=== PATIENT | male | born 1965 | race Caucasian/White ===

== ENCOUNTER 2024-12-16 09:41 | Outpatient (OUT) | payer BC, SELFPAY ==
--- OUTSIDE RECORDS SUMMARY | 2024-12-16 09:49 | XMS_ITS | Clinical Summary ---
Author Organization [facility] Address [address], [address] [place] [address] Care Team Providers Care Doughnut Icer Name Role Phone Tucker Arana Primary Care Provider [phone] Allergies Active Allergy Reactions Criticality Noted Date Comments Dulaglutide Nausea And Vomiting Low 08/08/2020 Medications aspirin 81 MG tablet Take 1 tablet by mouth daily Active losartan (COZAAR) 25 MG tablet Take 1 tablet by mouth daily Active hydrochlorothi azide (HYDRODIURIL) 25 MG tabletIndicati ons:Takes MWF Take 25 mg by mouth daily Active metFORMIN (GLUCOPHAGE) 1000 MG tablet Take 1,000 mg by mouth 2 times daily (with meals) Active insulin glargine (TOUJEO MAX SOLOSTAR) 300 UNIT/ML injection pen Inject 30 Units into the skin nightly Active empagliflozin (JARDIANCE) 25 MG tablet Take 1 tablet by mouth daily Active sitaGLIPtan-me tFORMIN (JANUMET) 50-1000 MG per tablet 1 tablet 4 Active atorvastatin (LIPITOR) 40 MG tablet Take 1 tablet by mouth daily Active BASAGLAR KWIKPEN 100 UNIT/ML injection pen inject 30 units subcutaneously every evening 4 Active metoprolol tartrate (LOPRESSOR) 50 MG tablet Take 1 tablet by mouth 2 times daily 180 tablet 2 5 Active nitroGLYCERIN (NITROSTAT) 0.[address] 1 tablet under the tongue as needed for Chest pain up to max of 3 total doses. If no relief after 1 dose, call 911. 25 tablet 5 Active nitroGLYCERIN (NITRODUR) 0.2 MG/HR APPLY 1 PATCH ONCE DAILY DIRECTED 90 patch 1 5 Active Active Problems Problem Noted Date Diagnosed Date Benign essential HTN 11/11/2023 Social History Tobacco Use Types Packs/Day Years Used Date Smoking Tobacco: Former Smokeless Tobacco: Never Tobacco Cessation:Counseling Given: Not Answered Alcohol Use Standard Drinks/Week Comments No 0 (1 standard drink = 0.6 oz pur e alcohol) Sex and Gender Information Value Date Recorded Sex Assigned at Not on file Legal Sex Male 9:45 PM EST Gender Identity Not on file Sexual Orientation Not on file Last Filed Vital Signs Vital Sign Reading Time Taken Comments Blood Pressure 138/88 11/11/2023 9:35 AM EDT Pulse 74 11/11/2023 9:35 AM EDT Temperature 36.3 C (97.3 F) 05/13/2018 1:00 AM EST Respiratory Rate 16 11/11/2023 9:35 AM EDT Oxygen Saturation 97% 11/11/2023 9:35 AM EDT Inhaled Oxygen Concentration - - Weight 100.7 kg (222 lb) 11/11/2023 9:35 AM EDT Height 170.2 cm (5' 7 ) 11/11/2023 9:35 AM EDT Body Mass Index 34.77 11/11/2023 9:35 AM EDT Plan of Treatment Health Maintenance Due Date Last Done Comments Depression Screen 1976 HIV screen 08/12/1979 Hepatitis C screen 1982 Colonoscopy 2009 Colorectal Cancer Screen 2009 FIT/FOBT: Average risk 2009 Fecal-DNA (Cologuard): Average risk 2009 Sigmoidoscopy/CT colonography 2009 Shingles vaccine (1 of 2) 2014 Pneumococcal 50+ years Vaccine (2 of 2 - PCV) 10/30/2019 10/29/2018, 08/20/2011 COVID-19 Vaccine (3 - season) 2024 02/23/2021, 01/26/2021 Respiratory Syncytial Virus (RSV) or age 60 yrs+ (1 - Risk 60-74 years 1-dose series) 2024 Lipids 10/29/2024 10/30/2023, 06/2022, 11/02/2021, Additional history exists Flu vaccine (#1) 12/10/2024 03/26/2023, , 01/11/2020, Additional history exists A1C test (Diabetic or Prediabetic) 01/20/2025 01/21/2024, 10/03/2023, 03/19/2023, Additional history exists DTaP/Tdap/Td vaccine (4 - Tdap) 04/25/2027 04/25/2017, 01/17/2016, 02/06/2015, Additional history exists Pneumococcal 0-49 years Vaccine Discontinued 10/29/2018, 08/20/2011 Diabetic Alb to Cr ratio (uACR) test Discontinued 10/30/2023, 10/11/2022, 11/02/2021, Additional history exists Prostate Specific Antigen (PSA) Screening or Monitoring Discontinued 01/21/2024, 10/30/2023, 10/11/2022, Additional history exists Hepatitis A vaccine Aged Out No longe r eligible based on patient's age to complete this topic Hepatitis B vaccine Aged Out No longe r eligible based on patient's age to complete this topic Hib vaccine Aged Out No longer eligi ble based on patient's age to complete this topic Meningococcal (ACWY) vaccine Aged Out No longer eligible based on patient's age to complete this topic Meningococcal B vaccine Aged Out No l onger eligible based on patient's age to complete this topic Polio vaccine Aged Out No longer elig ible based on patient's age to complete this topic Procedures Procedure Name Priority Date/Time Associated Diagnosis Comments HEMOGLOBIN A1C Routine 01/21/2024 9:57 AM EDT PSA, FREE Routine 01/21/2024 9:56 AM EDT LIPID PANEL Routine 10/30/2023 11:51 AM EDT MICROALBUMIN, UR Routine 10/30/2023 11:5 1 AM EDT from Last 3 Months or Most Recently Relevant to Health Maintenance Results * (ABNORMAL) Hemoglobin A1C (01/21/2024 9:57 AM EDT) Hemoglobin A1C 6.8(H) 4.0 - 6.0 % 01/21/2024 9:57 AM EDT [facility] Estimated Avg Glucose 148 mg/dL 01/21/2024 9:57 AM EDT [facility] Comment: The ADA and AACC recommend providing the estimated average glucose result to permit better patient understanding of their HBA1c result. 01/21/2024 9:57 AM EDT 01/21/2024 9:58 AM EDT us Tucker Arana DO CHEMISTRY ORDERABLES Final Resu lt [facility] [address] [place] [address], [facility] [[email or web address]] [phone] [place] [id number] [address] [phone] * PSA, free (01/21/2024 9:56 AM EDT) PSA 1.40 0.00 - 4.00 ng/mL 01/21/2024 9:56 AM EDT [facility] Comment: The Cr ECLIA assay is used. Results obtained with different assay methods cannot be used interchangeably. PSA, Free 0.4 ug/L 01/21/2024 9:56 AM EDT [facility] PSA, Free Pct 28.6 % 01/21/2024 9:56 AM EDT [facility] Comment: In patients with total PSA concentrations of 4-10 ng/mL, the probability of finding prostate cancer on needle biopsy in a patient age 50-59 years is: % Free PSA Probability 0-10% 49% 11-18% 27% 19-25% 18% >25 % 9% Other factors may help determine the actual risk of prostate cancer in individual patients. The free PSA percentage is an aid in distinguishing prostate cancer from benign prostatic conditions in men age 50 and older with a total PSA between 3 and 10 ng/mL and negative digital rectal examination findings. 01/21/2024 9:56 AM EDT 01/21/2024 9:57 AM EDT us Tucker Arana DO CHEMISTRY ORDERABLES Final Resu lt [facility] [address] [place] [address], [facility] [[email or web address]] [phone] [facility] [address] [place] [address], [facility] [[email or web address]] [phone] * Microalbumin, Ur (10/30/2023 11:51 AM EDT) Albumin Urine <12 0 - 20 mg/L 10/30/2023 11:51 AM EDT [facility] Creatinine, Ur 67.0 39.0 - 259.0 mg/dL 10/30/2023 11:51 AM EDT [facility] Microalb/Oral And Maxillofacial Surgeon. Ratio Can not be calculated 0.0 - 17.0 mcg/mg creat 10/30/2023 11:51 AM EDT [facility] 10/30/2023 11:5 1 AM EDT 10/30/2023 11:52 AM EDT us Tucker Arana DO URINE ORDERABLES Final Result [facility] [address] [place] [id number], [facility] [[email or web address]] [phone] [email or web address] [address], [facility] [[email or web address]] [phone] * (ABNORMAL) Lipid Panel (10/30/2023 11:51 AM EDT) Cholesterol, Total 119 0 - 199 mg/dL 10/30/2023 11:51 AM EDT [facility] Comment: Cholesterol Guidelines: <200 Desirable 200-240 Borderline >240 Undesirable HDL 36(L) >40 mg/dL 10/30/2023 11:51 AM EDT [facility] Comment: HDL Guidelines: <40 Undesirable 40-59 Borderline >59 Desirable LDL Cholesterol 64 0 - 100 mg/dL 10/30/2023 11:51 AM EDT [facility] Comment: LDL Guidelines: <100 Desirable 100-129 Near to/above Desirable 130-159 Borderline >159 Undesirable Direct (measured) LDL and calculated LDL are not interchangeable tests. Chol/HDL Ratio 3.0 10/30/2023 11:51 AM EDT [facility] Triglycerides 99 <150 mg/dL 10/30/2023 11:51 AM EDT [facility] Comment: Triglyceride Guidelines: <150 Desirable 150-199 Borderline 200-499 High >499 Very high Based on AHA Guidelines for fasting triglyceride, February 2012. VLDL 20 mg/dL 10/30/2023 11:51 AM EDT [facility] 10/30/2023 11:5 1 AM EDT 10/30/2023 11:52 AM EDT Tucker Arana DO CHEMISTRY ORDERABLES Final Resu lt [facility] [address] [place] [address], [facility] [[email or web address]] [phone] [place] [id number] [place] [id number] [phone] from Last 3 Months or Most Recently Relevant to Health Maintenance [place] [employer] Care Teams Doughnut Icer Relationship Specialty Start Date End Date Tucker Arana DO [address] [place] [address] PCP - General 01/30/12
--- OUTSIDE RECORDS SUMMARY | 2024-12-16 09:49 | XMS_ITS | Encounter Summary ---
Author Organization [facility] Address [address], [address] [place] [address] Care Team Providers Care Cloth Hand Name Role Phone Tucker Arana DO Primary Care Provider [phone] Reason for Referral * Imaging (Routine) - Closed Specialty Diagnoses / Procedures Referred By Contac t Referred To Contact Radiology Diagnoses Atherosclerosis of coronary artery, angina presence unspecified, unspecified vessel or lesion type, unspecified whether [place] or transplanted heart Hypertension, essential Procedures NM CARDIAC MUGA SCAN Molly Amaya MD [facility] Nuclear Medicine [address] [place], [place] [id number] Phone: tel: Referral ID Status Reason Start Date Expiration Date Visits Re quested Visits Authorized [id number] Closed 09/06/2020 10/05/2020 1 1 Encounter Details Date Type Department Care Team (Latest Contact Info) Description 09/07/2020 Transcribe Orders [facility] [address] [place] [address] oMlly Amaya MD Atherosclerosis of coronary artery, angina presence unspecified, unspecified vessel or lesion type, unspecified whether [place] or transplanted heart (Primary Dx); Hypertension, essential Social History Tobacco Use Types Packs/Day Years Used Date Smoking Tobacco: Former Smokeless Tobacco: Never Alcohol Use Standard Drinks/Week Comments No 0 (1 standard drink = 0.6 oz pur e alcohol) Sex and Gender Information Value Date Recorded Sex Assigned at Not on file Legal Sex Male 9:45 PM EST Gender Identity Not on file Sexual Orientation Not on file documented as of this encounter Plan of Treatment Not on file documented as of this encounter Results * NM CARDIAC MUGA SCAN (09/15/2020 11:51 AM EDT) Left Ventricular Ejection Fraction 56 MH LVEF LVEF MODALITY Nuclear LVEF Anatomical Region Laterality Modality Chest Nuclear Medicine 09/15/2020 11:4 7 AM EDT Impressions 09/15/2020 3:01 PM EDT Left ventricular ejection fraction is 56% Narrative 09/15/2020 3:01 PM EDT EXAMINATION: MUGA SCAN 09/15/2020 TECHNIQUE: The patient's erythrocytes were labeled with 25.5 mCi of 99 mTc. Following injection, scintigraphy with ECG gating was acquired. COMPARISON: None. HISTORY: ORDERING SYSTEM PROVIDED HISTORY: Atherosclerosis of coronary artery, angina presence unspecified, unspecified vessel or lesion type, unspecified whether [place] or transplanted heart FINDINGS: The cardiac chambers and great vessels appear grossly normal in size and configuration. Right ventricular contractility is subjectively normal. Left ventricle ejection fraction is 56%. Procedure Note Stefanie Contreras MD / Result, Unknown Provider - 09/15/2020 EXAMINATION: MUGA SCAN 09/15/2020 TECHNIQUE: The patient's erythrocytes were labeled with 25.5 mCi of 99 mTc.Following injection, scintigraphy with ECG gating was acquired. COMPARISON: None. HISTORY: ORDERING SYSTEM PROVIDED HISTORY: Atherosclerosis of coronary artery,angina presence unspecified, unspecified vessel or lesion type, unspecifiedwhether [place] or transplanted heart FINDINGS: The cardiac chambers and great vessels appear grossly normal in size and configuration. Right ventricular contractility is subjectively normal. Left ventricle ejection fraction is 56%. IMPRESSION: Left ventricular ejection fraction is 56% Molly Amaya MD [facility] ORDERABLES Edited Result - Final documented in this encounter Visit Diagnoses Diagnosis Atherosclerosis of coronary artery, angina presence unspecified, unspecified vessel or lesion type, unspecified whether [place] or transplanted heart- Primary Hypertension, essential Unspecified essential hypertension Atherosclerosis of coronary artery, angina presence unspecified, unspecified vessel or lesion type, unspecified whether [place] or transplanted heart Hypertension, essential Unspecified essential hypertension documented in this encounter Care Teams Cloth Hand Relationship Specialty Start Date End Date Tucker Arana DO [address] [place] [id number] PCP - General 01/30/12 documented as of this encounter
--- NOTE | 2024-12-16 09:55 | XR_ITS ---
The [address] [address] Patient Name: CHAPITO TRENT MRN: [id number] date: 1965 Sex: M Assigned Patient Location: [facility] Current Patient Location: [facility] Accession/Order Number: [id number] Exam Date: 12/16/2024 10:42 Report Date: 12/16/2024 10:57 At the request of: NNAMDI FAJARDO DO Procedure: XR ribs LT min 3V w CXR1V PA CHEST WITH LEFT RIBS: CLINICAL HISTORY: Patient fell onto left side approximately one week ago. Increasing left rib pain after coughing 4 days ago. COMPARISON: None The chest film shows no infiltrate, effusion or pneumothorax. The heart is normal size. There is increased right paratracheal soft tissue density. It is uncertain if this is vascular on the basis of this study and there are no priors for correlation. No vascular congestion is seen. AP and both oblique views of the left ribs show no definite acute displaced fractures or bony destruction. XR/XR ribs LT min 3V w CXR1V IMPRESSION: NO ACUTE RIB OR PULMONARY FINDINGS. APPARENT MEDIASTINAL WIDENING. THIS MIGHT BE VASCULAR THOUGH THERE ARE NO PRIORS FOR CORRELATION. IF OUTSIDE STUDIES EXIST, COMPARISON MAY BE HELPFUL. OTHERWISE FOLLOW-UP COULD BE OBTAINED CLINICALLY WARRANTED. Impression dictated by: Neelima Land M.D. 12/16/2024 10:57 AM Dictation Location: [place] [address] Electronically authenticated by: [id number] Y Date: 12/16/2024 10:57
== END 2024-12-16 09:42 | disposition home or self-care (01) ==
LOC: RAD 09:47
PROVIDERS: PCP Internal Medicine; Visit Provider Internal Medicine
DX: R07.9 Chest pain, unspecified (principal)
CPT/HCPCS: 71101

== ENCOUNTER 2025-01-07 08:44 | Outpatient (OUT) | payer BC, SELFPAY ==
--- OUTSIDE RECORDS SUMMARY | 2024-12-30 14:13 | XMS_ITS | Encounter Summary ---
Author Organization [facility] Address [address], [address] [place] [address] Care Team Providers Care Pollution Control Engineer Name Role Phone SumitTucker Primary Care Provider [phone] Encounter Details Date Type Department Care Team (Latest Contact Info) Description 12/30/2024 2:13 PM EDT - 12/30/2024 11:59 PM EDT Hospital Encounter [place] [id number] Discharge Disposition: Home or Self Care Social History Tobacco Use Types Packs/Day Years [...] on file documented as of this encounter Medications at Time of Discharge nitroGLYCERIN (NITRODUR) 0.2 MG/HR APPLY 1 PATCH ONCE DAILY DIRECTED 90 patch 1 08/13/2024 nitroGLYCERIN (NITROSTAT) 0.[address] 1 tablet under the tongue as needed for Chest pain up to max of 3 total doses. If no relief after 1 dose, call 911. 25 tablet 08/06/2024 metoprolol tartrate (LOPRESSOR) 50 MG tablet Take 1 tablet by mouth 2 times daily 180 tablet 2 05/31/2024 sitaGLIPtan-met FORMIN (JANUMET) 50-1000 MG per tablet 1 tablet 10/10/2023 atorvastatin (LIPITOR) 40 MG tablet Take 1 tablet by mouth daily BASAGLAR KWIKPEN 100 UNIT/ML injection pen inject 30 units subcutaneously every evening 09/23/2023 aspirin 81 MG tablet Take 1 tablet by mouth daily losartan (COZAAR) 25 MG tablet Take 1 tablet by mouth daily hydrochlorothia zide (HYDRODIURIL) 25 MG tabletIndicatio ns:Takes MWF Take 25 mg by mouth daily metFORMIN (GLUCOPHAGE) 1000 MG tablet Take 1,000 mg by mouth 2 times daily (with meals) insulin glargine (TOUJEO MAX SOLOSTAR) 300 UNIT/ML injection pen Inject 30 Units into the skin nightly empagliflozin (JARDIANCE) 25 MG tablet Take 1 tablet by mouth daily documented as of this encounter Plan of Treatment Not on file documented as of this encounter Procedures Procedure Name Priority Date/Time Associated Diagnosis Comments PSA SCREENING Routine 12/30/2024 2:18 PM EDT CBC WITH AUTO DIFFERENTIAL Routine 12/30/2024 2:18 PM EDT ALBUMIN/CREATININE RATIO, URINE Routine 12/30/2024 2:18 PM EDT HEMOGLOBIN A1C Routine 12/30/2024 2:18 PM EDT LIPID PANEL Routine 12/30/2024 2:18 PM EDT COMPREHENSIVE METABOLIC PANEL Routine 12/30/2024 2:18 PM EDT documented in this encounter Results * Albumin/Creatinine Ratio, Urine (12/30/2024 2:18 PM EDT) Albumin Urine 19 0 - 20 mg/L 12/30/2024 2:18 PM EDT [facility] Creatinine, Ur 128.0 39.0 - 259.0 mg/dL 12/30/2024 2:18 PM EDT [facility] Comment:Reference range defi sara for 1st morning urine [employer]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 Ratio 15 0.0 - 17.0 mcg/mg creat 12/30/2024 2:18 PM EDT [facility] 12/30/2024 2:18 PM EDT 12/30/2024 2:19 PM EDT us Tucker Arana DO URINE ORDERABLES Final Result Performing Organization Address [facility]/ZIP Co de Phone Number [facility] [address] [place] [address], [facility] [phone] [employer] [address] [place] [address], [facility] [phone] * PSA Screening (12/30/2024 2:18 PM EDT) PSA 1.67 0.00 - 4.00 ng/mL 12/30/2024 2:18 PM EDT [facility] Comment: The [employer] ECLIA assay is used. Results obtained with different assay methods cannot be used interchangeably. 12/30/2024 2:18 PM EDT 12/30/2024 2:19 PM EDT us Tucker Arana DO CHEMISTRY ORDERABLES Final Resu lt Performing Organization Address [facility]/ZIP Co de Phone Number [facility] [address] [place] [address], [facility] [phone] [facility] [address] [place] [address], [facility] [phone] * (ABNORMAL) Lipid Panel (12/30/2024 2:18 PM EDT) Cholesterol, Total 112 0 - 199 mg/dL 12/30/2024 2:18 PM EDT [facility] Comment: Cholesterol Guidelines: <200 Desirable 200-240 Borderline >240 Undesirable HDL 39(L) >40 mg/dL 12/30/2024 2:18 PM EDT [facility] Comment: HDL Guidelines: <40 Undesirable 40-59 Borderline >59 Desirable LDL Cholesterol 58 0 - 100 mg/dL 12/30/2024 2:18 PM EDT [facility] Comment: LDL Guidelines: <100 Desirable 100-129 Near to/above Desirable 130-159 Borderline >159 Undesirable Direct (measured) LDL and calculated LDL are not interchangeable tests. Chol/HDL Ratio 2.9 <5.0 12/30/2024 2:18 PM EDT [facility] Triglycerides 75 <150 mg/dL 12/30/2024 2:18 PM EDT [facility] Comment: Triglyceride Guidelines: <150 Desirable 150-199 Borderline 200-499 High >499 Very high Based on AHA Guidelines for fasting triglyceride, February 2012. VLDL 15 1 - 30 mg/dL 12/30/2024 2:18 PM EDT [facility] 12/30/2024 2:18 PM EDT 12/30/2024 2:19 PM EDT [employer] CHEMISTRY ORDERABLES Final Resu lt Performing Organization Address [facility] Co de Phone Number [facility] [address] [place] [address], [facility] [phone] [facility] [address] [place] [address], [facility] [phone] * Hemoglobin A1C (12/30/2024 2:18 PM EDT) Pathologist [facility] Hemoglobin A1C 6.0 4.0 - 6.0 % 12/30/2024 2:18 PM EDT [facility] Estimated Avg Glucose 126 mg/dL 12/30/2024 2:18 PM EDT [facility] Comment: The ADA and AACC recommend providing the estimated average glucose result to permit better patient understanding of their HBA1c result. 12/30/2024 2:18 PM EDT 12/30/2024 2:19 PM EDT [employer] CHEMISTRY ORDERABLES Final Resu lt Performing Organization Address [facility]/ZIP Co de Phone Number [facility] [address] [place] [address], [facility] [phone] [facility] [address] [place] [address], [facility] [phone] * (ABNORMAL) Comprehensive Metabolic Panel (12/30/2024 2:18 PM EDT) Sodium 139 136 - 145 mmol/L 12/30/2024 2:18 PM [facility] Potassium 4.4 3.7 - 5.3 mmol/L 12/30/2024 2:18 PM [facility] Chloride 101 98 - 107 mmol/L 12/30/2024 2:18 PM [facility] CO2 26 20 - 31 mmol/L 12/30/2024 2:18 PM [facility] Anion Gap 12 9 - 16 mmol/L 12/30/2024 2:18 PM [facility] Glucose 72(L) 74 - 99 mg/dL 12/30/2024 2:18 PM [facility] BUN 18 8 - 23 mg/dL 12/30/2024 2:18 PM [facility] Creatinine 0.9 0.70 - 1.20 mg/dL 12/30/2024 2:18 PM [facility] Est, Glom Filt Rate >90 >60 mL/min/1.7 3m2 12/30/2024 2:18 PM [facility] Comment: These results are not intended for use in patients <18 years of age. eGFR results are calculated without a race factor using the 2020 CKD-EPI equation. Careful clinical correlation is recommended, particularly when comparing to results calculated using previous equations. The CKD-EPI equation is less accurate in patients with extremes of muscle mass, extra-renal metabolism of creatine, excessive creatine ingestion, or following therapy that affects renal tubular secretion. BUN/Creatinine Ratio 20 9 - 20 12/30/2024 2:18 PM [facility] Calcium 9.6 8.6 - 10.4 mg/dL 12/30/2024 2:18 PM [facility] Total Protein 7.1 6.6 - 8.7 g/dL 12/30/2024 2:18 PM [facility] Albumin 4.7 3.5 - 5.2 g/dL 12/30/2024 2:18 PM [facility] Albumin/Globulin Ratio 1.9 1.0 - 2.5 12/30/2024 2:18 PM EDT [facility] Total Bilirubin 1.8(H) 0.00 - 1.20 mg/dL 12/30/2024 2:18 PM EDT [facility] Alkaline Phosphatase 72 40 - 129 U/L 12/30/2024 2:18 PM EDT [facility] ALT 28 10 - 50 U/L 12/30/2024 2:18 PM EDT [facility] AST 25 10 - 50 U/L 12/30/2024 2:18 PM EDT [facility] 12/30/2024 2:18 PM EDT 12/30/2024 2:19 PM EDT us Tucker Arana DO CHEMISTRY ORDERABLES Final Resu lt [facility] [address] [phone] * (ABNORMAL) CBC with Auto Differential (12/30/2024 2:18 PM EDT) WBC 9.4 3.5 - 11.3 k/uL 12/30/2024 2:18 PM EDT [facility] RBC 5.57 4.21 - 5.77 m/uL 12/30/2024 2:18 PM T [facility] Hemoglobin 17.1(H) 13.0 - 17.0 g/dL 12/30/2024 2:18 PM EDT [facility] Hematocrit 51.5(H) 40.7 - 50.3 % 12/30/2024 2:18 PM EDT [facility] MCV 92.5 82.6 - 102.9 fL 12/30/2024 2:18 PM EDT [facility] MCH 30.7 25.2 - 33.5 pg 12/30/2024 2:18 PM EDT [facility] MCHC 33.2 28.4 - 34.8 g/dL 12/30/2024 2:18 PM [facility] RDW 13.3 11.8 - 14.4 % 12/30/2024 2:18 PM [facility] Platelets 323 138 - 453 k/uL 12/30/2024 2:18 PM [facility] MPV 9.3 8.1 - 13.5 fL 12/30/2024 2:18 PM [facility] NRBC Automated 0.0 0.0 per 100 WBC 12/30/2024 2:18 PM [facility] Neutrophils % 67(H) 36 - 65 % 12/30/2024 2:18 PM [facility] Lymphocytes % 16(L) 24 - 43 % 12/30/2024 2:18 PM [facility] Monocytes % 8 3 - 12 % 12/30/2024 2:18 PM [facility] Eosinophils % 8(H) 1 - 4 % 12/30/2024 2:18 PM [facility] Basophils % 0 0 - 2 % 12/30/2024 2:18 PM [facility] Immature Granulocytes % 1(H) 0 % 12/30/2024 2:18 PM [facility] Neutrophils Absolute 6.34 1.50 - 8.10 k/uL 12/30/2024 2:18 PM [facility] Lymphocytes Absolute 1.53 1.10 - 3.70 k/uL 12/30/2024 2:18 PM [facility] Monocytes Absolute 0.72 0.10 - 1.20 k/uL 12/30/2024 2:18 PM [facility] Eosinophils Absolute 0.77(H) 0.00 - 0.44 k/uL 12/30/2024 2:18 PM [facility] Basophils Absolute 0.03 0.00 - 0.20 k/uL 12/30/2024 2:18 PM [facility] Immature Granulocytes Absolute 0.05 0.00 - 0.30 k/uL 12/30/2024 2:18 PM [facility] 12/30/2024 2:18 PM EDT 12/30/2024 2:19 PM EDT us Tucker Arana DO HEMATOLOGY ORDERABLES Final Res ult [facility] [address] [phone] documented in this encounter Visit Diagnoses Not on filedocumented in this encounter Care Teams Pollution Control Engineer Relationship Specialty Start Date End Date Tucker Arana DO [address] [place] [address] PCP - General 01/30/12 documented as of this encounter
--- OUTSIDE RECORDS SUMMARY | 2025-01-07 08:46 | XMS_ITS | Clinical Summary ---
Author Organization [facility] Address [address], [address] [place] [address] Care Team Providers Care Information Systems Architect Name Role Phone Tucker Arana Primary Care Provider Allergies Active Allergy Reactions Criticality Noted Date [...] Date Diagnosed Date Benign essential HTN 11/11/2023 Encounters Date Type Department Care Team Description 12/30/2024 2:13 PM EDT - 12/30/2024 11:59 PM [place] [address] Discharge Disposition: Home or Self Care from Last 3 Months Social History Tobacco Use Types Packs/Day Years [...] - Risk 60-74 years 1-dose series) 2024 Flu vaccine (#1) 12/10/2024 03/26/2023, , 01/11/2020, Additional history exists A1C test (Diabetic or Prediabetic) 12/30/2025 12/30/2024, 01/21/2024, 10/03/2023, Additional history exists Lipids 12/30/2025 12/30/2024, 10/11, 10/11/2022, Additional history exists DTaP/Tdap/Td vaccine (4 - Tdap) 04/25/2027 04/25/2017, 01/17/2016, 02/06/2015, Additional history exists Pneumococcal 0-49 years Vaccine Discontinued 10/29/2018, 08/20/2011 Diabetic Alb to Cr ratio (uACR) test Discontinued 12/30/2024, 10/30/2023, 10/11/2022, Additional history exists Prostate Specific Antigen (PSA) Screening or Monitoring Discontinued 12/30/2024, 01/21/2024, 10/30/2023, Additional history exists Hepatitis A vaccine Aged [...] Procedure Name Priority Date/Time Associated Diagnosis Comments ALBUMIN/CREATININE RATIO, URINE Routine 12/30/2024 2:18 PM EDT PSA SCREENING Routine 12/30/2024 2:18 PM EDT LIPID PANEL Routine 12/30/2024 2:18 PM EDT HEMOGLOBIN A1C Routine 12/30/2024 2:18 PM EDT COMPREHENSIVE METABOLIC PANEL Routine 12/30/2024 2:18 PM EDT CBC WITH AUTO DIFFERENTIAL Routine 12/30/2024 2:18 PM EDT from Last 3 Months Results * PSA Screening (12/30/2024 2:18 PM EDT) [facility] PSA 1.67 0.00 - 4.00 ng/mL 12/30/2024 2:18 PM EDT [facility] Comment: The Cr ECLIA assay is used. Results obtained with different assay methods cannot be used interchangeably. 12/30/2024 2:18 PM EDT 12/30/2024 2:19 PM EDT us Tuckre Arana DO CHEMISTRY ORDERABLES Final Resu lt [facility] [address] [place] [address], [facility] [phone] [place] [address] [place] [address], [facility] [phone] * (ABNORMAL) CBC with Auto Differential (12/30/2024 2:18 PM EDT) [facility] WBC 9.4 3.5 - 11.3 k/uL 12/30/2024 2:18 PM EDT [facility] RBC 5.57 4.21 - 5.77 m/uL 12/30/2024 2:18 PM EDT [facility] Hemoglobin 17.1(H) 13.0 - 17.0 g/dL 12/30/2024 2:18 PM EDT [facility] Hematocrit 51.5(H) 40.7 - 50.3 % 12/30/2024 2:18 PM EDT [facility] MCV 92.5 82.6 - 102.9 fL 12/30/2024 2:18 PM [facility] MCH 30.7 25.2 - 33.5 pg 12/30/2024 2:18 PM [facility] MCHC 33.2 28.4 - 34.8 g/dL 12/30/2024 2:18 PM [facility] RDW 13.3 11.8 - 14.4 % 12/30/2024 2:18 PM [facility] Platelets 323 138 - 453 k/uL 12/30/2024 2:18 PM [facility] MPV 9.3 8.1 - 13.5 fL 12/30/2024 2:18 PM [facility] NRBC Automated 0.0 0.0 per 100 WBC 12/30/2024 2:18 PM [facility] Neutrophils % 67(H) 36 - 65 % 12/30/2024 2:18 PM [facility] Lymphocytes % 16(L) 24 - 43 % 12/30/2024 2:18 PM [facility] Monocytes % 8 3 - 12 % 12/30/2024 2:18 PM [facility] Eosinophils % 8(H) 1 - 4 % 12/30/2024 2:18 PM [facility] Basophils % 0 0 - 2 % 12/30/2024 2:18 PM [facility] Immature Granulocytes % 1(H) 0 % 12/30/2024 2:18 PM [facility] Neutrophils Absolute 6.34 1.50 - 8.10 k/uL 12/30/2024 2:18 PM [facility] Lymphocytes Absolute 1.53 1.10 - 3.70 k/uL 12/30/2024 2:18 PM [facility] Monocytes Absolute 0.72 0.10 - 1.20 k/uL 12/30/2024 2:18 PM [facility] Eosinophils Absolute 0.77(H) 0.00 - 0.44 k/uL 12/30/2024 2:18 PM EDT [facility] Basophils Absolute 0.03 0.00 - 0.20 k/uL 12/30/2024 2:18 PM EDT [facility] Immature Granulocytes Absolute 0.05 0.00 - 0.30 k/uL 12/30/2024 2:18 PM EDT [facility] 12/30/2024 2:18 PM EDT 12/30/2024 2:19 PM EDT Tucker Arana DO HEMATOLOGY ORDERABLES Final Res ult [facility] [address] [place] [address], [facility] [phone] * Albumin/Creatinine Ratio, Urine (12/30/2024 2:18 PM EDT) Albumin Urine 19 0 - 20 mg/L 12/30/2024 2:18 PM EDT [facility] Creatinine, Ur 128.0 39.0 - 259.0 mg/dL 12/30/2024 2:18 PM EDT [email or web address] Comment: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 Ratio 15 0.0 - 17.0 mcg/mg creat 12/30/2024 2:18 PM EDT [facility] 12/30/2024 2:18 PM EDT 12/30/2024 2:19 PM EDT Tucker rAana DO URINE ORDERABLES Final Result [facility] [address] [place] [address], [facility] [phone] [email or web address] [address] [place] [address], [facility] [phone] * Hemoglobin A1C (12/30/2024 2:18 PM EDT) Hemoglobin A1C 6.0 4.0 - 6.0 % 12/30/2024 2:18 PM EDT [facility] Estimated Avg Glucose 126 mg/dL 12/30/2024 2:18 PM EDT [email or web address] Comment: The ADA and AACC recommend providing the estimated average glucose result to permit better patient understanding of their HBA1c result. 12/30/2024 2:18 PM EDT 12/30/2024 2:19 PM EDT Tucker Arana DO CHEMISTRY ORDERABLES Final Resu lt [facility] [address] [place] [address], [facility] [phone] [facility] [address] [place] [address], [facility] [phone] * (ABNORMAL) Lipid Panel (12/30/2024 2:18 PM EDT) Cholesterol, Total 112 0 - 199 mg/dL 12/30/2024 2:18 PM EDT [email or web address] Comment: Cholesterol Guidelines: <200 Desirable 200-240 Borderline >240 Undesirable HDL 39(L) >40 mg/dL 12/30/2024 2:18 PM EDT [facility] Comment: HDL Guidelines: <40 Undesirable 40-59 Borderline >59 Desirable LDL Cholesterol 58 0 - 100 mg/dL 12/30/2024 2:18 PM EDT [facility] Comment: LDL Guidelines: <100 Desirable 100-129 Near to/above Desirable 130-159 Borderline >159 Undesirable Direct (measured) LDL and calculated LDL are not interchangeable tests. Chol/HDL Ratio 2.9 <5.0 12/30/2024 2:18 PM EDT [facility] Triglycerides 75 <150 mg/dL 12/30/2024 2:18 PM EDT [facility] Comment: Triglyceride Guidelines: <150 Desirable 150-199 Borderline 200-499 High >499 Very high Based on AHA Guidelines for fasting triglyceride, February 2012. VLDL 15 1 - 30 mg/dL 12/30/2024 2:18 PM EDT [facility] 12/30/2024 2:18 PM EDT 12/30/2024 2:19 PM EDT Tucker Arana DO CHEMISTRY ORDERABLES Final Resu lt [facility] [address] [place] [address], [facility] [phone] [place] [address] [place] [address], [facility] [phone] * (ABNORMAL) Comprehensive Metabolic Panel (12/30/2024 2:18 PM EDT) Sodium 139 136 - 145 mmol/L 12/30/2024 2:18 PM EDT [facility] Potassium 4.4 3.7 - 5.3 mmol/L 12/30/2024 2:18 PM EDT [facility] Chloride 101 98 - 107 mmol/L 12/30/2024 2:18 PM EDT [facility] CO2 26 20 - 31 mmol/L 12/30/2024 2:18 PM EDT [facility] Anion Gap 12 9 - 16 mmol/L 12/30/2024 2:18 PM EDT [facility] Glucose 72(L) 74 - 99 mg/dL 12/30/2024 2:18 PM T [facility] BUN 18 8 - 23 mg/dL 12/30/2024 2:18 PM [facility] Creatinine 0.9 0.70 - 1.20 mg/dL 12/30/2024 2:18 PM T [facility] Est, Glom Filt Rate >90 >60 mL/min/1.7 3m2 12/30/2024 2:18 PM EDT [facility] Comment: These results are not intended [...] 20 9 - 20 12/30/2024 2:18 PM EDT [facility] Calcium 9.6 8.6 - 10.4 mg/dL 12/30/2024 2:18 PM EDT [facility] Total Protein 7.1 6.6 - 8.7 g/dL 12/30/2024 2:18 PM EDT [facility] Albumin 4.7 3.5 - 5.2 g/dL 12/30/2024 2:18 PM EDT [facility] Albumin/Globulin Ratio 1.9 1.0 - 2.5 12/30/2024 2:18 PM EDT [facility] Total Bilirubin 1.8(H) 0.00 - 1.20 mg/dL 12/30/2024 2:18 PM EDT [facility] Alkaline Phosphatase 72 40 - 129 U/L 12/30/2024 2:18 PM EDT [facility] ALT 28 10 - 50 U/L 12/30/2024 2:18 PM EDT [facility] AST 25 10 - 50 U/L 12/30/2024 2:18 PM EDT [facility] 12/30/2024 2:18 PM EDT 12/30/2024 2:19 PM EDT us Tucker Arana DO CHEMISTRY ORDERABLES Final Resu lt Performing Organization Address City/State/[facility] Co de Phone Number [facility] [address] [place] [address], [facility] [phone] from Last 3 Months Insurance BCBS BCBS Care Teams Information Systems Architect Relationship Specialty Start Date End Date Tucker Arana DO [address] [place] [id number] PCP - General 01/30/12
--- OUTSIDE RECORDS SUMMARY | 2025-01-07 08:46 | XMS_ITS | Encounter Summary ---
Author Organization [facility] Address [address], [address] [place] [address] Care Team Providers Care Wellness Ambassador Name Role Phone Tucker Arana DO Primary Care Provider [phone] Reason for Referral * Imaging (Routine) - Closed Specialty Diagnoses / Procedures Referred By Melissa nelson Referred To Contact Radiology Diagnoses Atherosclerosis of coronary artery, angina presence unspecified, unspecified vessel or lesion type, unspecified whether lower [place] or transplanted heart Hypertension, essential Procedures NM CARDIAC MUGA SCAN Molly Amaya MD [facility] Nuclear Medicine [address] [place], [place] [id number] Phone: tel: Referral ID Status Reason Start Date Expiration Date Visits Re quested Visits Authorized [id number] Closed 09/06/2020 10/05/2020 1 1 Encounter Details Date Type Department Care Team (Latest Contact Info) Description 09/07/2020 Transcribe Orders [facility] [address] [place] [address] Molly Amaya MD Atherosclerosis of coronary artery, angina presence unspecified, unspecified vessel or lesion type, unspecified whether lower [place] or transplanted heart (Primary Dx); Hypertension, essential [...] unspecified vessel or lesion type, unspecified whether lower [place] or transplanted heart FINDINGS: The cardiac chambers [...] unspecified, unspecified vessel or lesion type, unspecifiedwhether lower b[place] or transplanted heart FINDINGS: The cardiac chambers and great vessels appear grossly normal in size and configuration. Right ventricular contractility is subjectively normal. Left ventricle ejection fraction is 56%. IMPRESSION: Left ventricular ejection fraction is 56% Molly Amaya MD [facility] ORDERABLES Edited Result - Final documented in this encounter Visit Diagnoses Diagnosis Atherosclerosis of coronary artery, angina presence unspecified, unspecified vessel or lesion type, unspecified whether [place] or transplanted heart- Primary Hypertension, essential Unspecified essential hypertension Atherosclerosis of coronary artery, angina presence unspecified, unspecified vessel or lesion type, unspecified whether [place] or transplanted heart Hypertension, essential Unspecified essential hypertension documented in this encounter Care Teams Wellness Ambassador Relationship Specialty Start Date End Date Tucker Arana DO [address] [place] [id number] PCP - General 01/30/12 documented as of this encounter
--- NOTE | 2025-01-07 08:48 | CT_ITS ---
The [address] [address] Patient Name: CHAPITO TRENT MRN: [id number] date: 1965 Sex: M Assigned Patient Location: CT Current Patient Location: CT Accession/Order Number: [id number] Exam Date: 01/07/2025 09:02 Report Date: 01/07/2025 10:55 At the request of: NNAMDI FAJARDO DO Procedure: CT angio chest CTA CHEST WITH CONTRAST CLINICAL HISTORY: Mediastinal Widening on chest x-ray. Right-sided chest pain since fall on 12/10/2024 COMPARISON: Chest x-ray 12/16/2024 TECHNIQUE: Spiral images were obtained through the chest following intravenous administration of 100 mL of Omnipaque 350. Images were reviewed using both narrow and wide window settings. Sagittal, coronal and 3 D volume-rendered reconstructions were performed and reviewed. This CT exam was performed using one or more following dose reduction techniques: Automated exposure control, adjustment of the mA and/or kV according to patient size, or use of iterative reconstruction technique. FINDINGS: The heart is top normal in size. There is no pericardial effusion. Mild coronary artery disease is seen. No aortic aneurysm or dissection is seen. There is adequate opacification of the pulmonary arteries. No emboli are identified there is abundant mediastinal fat which is believed to correlate with the finding on chest x-ray. There are small scattered mediastinal lymph nodes, largest having fatty jerman. An 8 mm hypodense nodule is present at the lower pole of the right thyroid lobe. The bony thorax is intact. Tiny endplate spurs are seen. There is minor atelectasis and/or scarring at the lower lungs. No additional consolidation, pleural effusion or pneumothorax is noted. No pulmonary nodularity is seen. Limited cuts through the upper abdomen show no contributory abnormality. CT/CT angio chest IMPRESSION: NO AORTIC ANEURYSM OR DISSECTION. NO CT EVIDENCE OF PULMONARY EMBOLISM. ABUNDANT MEDIASTINAL FAT AND SMALL LYMPH NODES CORRELATING WITH THE FINDING ON CHEST X-RAY. MILD ATELECTASIS AND/OR SCARRING. Impression dictated by: Neelima Land M.D. 01/07/2025 10:55 AM Dictation Location: [employer] Electronically authenticated by: [id number] Y Date: 01/07/2025 10:55
== END 2025-01-07 08:45 | disposition home or self-care (01) ==
LOC: CT 08:44
PROVIDERS: PCP Internal Medicine; Visit Provider Internal Medicine
DX: R93.89 Abnormal findings on diagnostic imaging of other specified body structures (principal)
CPT/HCPCS: 71275; Q9967